=== PATIENT | female | born 1955 | race Caucasian/White ===

== ENCOUNTER 2025-03-23 15:50 | Outpatient (CLI) | payer OTHER ==
--- NOTE | 2025-03-24 03:55 | RADIOLOGY REPORT ---
INDICATION: NASAL POLYP EXAM DATE: 03/23/2025 04:06 PM COMPARISON: None TECHNIQUE: CT of the sinuses without intravenous contrast. RADIATION DOSE: CTDIvol: 25 mGy, DLP: 250 mGy*cm FINDINGS: The frontal sinuses are clear. The ethmoid air cells are clear bilaterally. The maxillary sinuses are clear bilaterally. The sphenoid sinuses are clear. The ostiomeatal unit complexes appear patent bilaterally. The cribriform plate and lamina papyracea appear grossly intact. No abnormality of the orbits or globes is identified. The visualized brain is unremarkable. The surrounding soft tissues and osseous structures are unremarkable. IMPRESSION: Clear paranasal sinuses. Anatomy as detailed above. Radiation optimization: All CT scans at this facility use at least one of these dose optimization techniques: automated exposure control mA and/or kV adjustment per patient size (includes targeted exams where dose is matched to clinical indication) or iterative reconstruction.
== END 2025-03-23 23:59 | disposition home or self-care (01) ==
LOC: RAD 15:50
PROVIDERS: ATTEND Nurse Practitioner Family
DX: J33.9 Nasal polyp, unspecified (principal)
CPT/HCPCS: 70486